=== PATIENT | male | born 1985 | race Caucasian/White ===

== ENCOUNTER 2018-09-18 08:22 | Emergency (ER) | payer MEDICAID ==
[~2018-09-18] VITALS: Ht 167.6 cm; Wt 113.4 kg
[~2018-09-18 08:22] MED LIST: ATOM40CA3 PO; ATOM60CA PO; CEPH500C PO; DIVA500T PO; HYDR-3714 PO; HYDR-757 PO; IBP600T1 PO; PHEN100C4 PO; PRM25T PO; RISP1TAB3 PO; RSP2T; STRAT40CAP PO; SULF-222 PO; SULF1TAB35 PO; SULF1TAB38 PO; TPR25T PO
--- NOTE | 2018-09-18 08:42 | NUR ---
PT GIVEN INFO FOR [facility]IC [facility]
--- NOTE | 2018-09-18 08:50 | ED EENT ---
History of Present Illness General Chief Complaint: Dental Problems/Pain Stated Complaint: DENTAL PAIN Nursing Triage Note: PT CO OF L LOWER TOOTH PAIN, AND L EAR PAIN. PT HAS DECAYED AND BROKEN TEETH. Source: patient Exam Limitations: no limitations History of Present Illness Date Seen by Provider: Sep 18, 2018 Time Seen by Provider: 08:45 Initial Comments This 33-year-old white male presents with dental caries. Patient has had significant long-standing dental caries. He has left mandibular dental caries began to hurt significantly and progressively in the last 48 hours. Patient has associated left ear pain. Patient denies associated headache stiff neck or photophobia. There has been no fever or chills. Patient's dental pain is severe, sharp, and radiates from the left mandible to the ear. Allergies and Home Medications Allergies Coded Allergies: No Known Drug Allergies (Unverified , 04/10/13) Home Medications No Active Prescriptions or Reported Meds Patient Home Medication List Home Medication List Reviewed: Yes Review of Systems Review of Systems Constitutional: No chills, No fever Ears: Pain (left ear) Nose: denies clots Mouth: see HPI, pain (and left mandible) Throat: denies no symptoms reported, denies neck stiffness Respiratory: No cough Cardiovascular: No chest pain Gastrointestinal: No abdominal pain, No nausea, No vomiting Musculoskeletal: No back pain Neurological: No Symptoms Reported Hematologic/Lymphatic: No Symptoms Reported Immunological/Allergic: no symptoms reported Past Zfftlng-Cudhnq-Vxaxeg Hx Past Med/Social Hx: Reviewed Nursing Past Med/Soc Hx Patient Social History Alcohol Use: Rarely Uses Recreational Drug Use: No Smoking Status: Current Someday Smoker Type Used: Cigarettes Recent Foreign Travel: No Contact w/Someone Who Travel: No Recent Infectious Disease Expo: No Recent Hopitalizations: No Physical Abuse: No Sexual Abuse: No Immunizations Up To Date Tetanus Booster (TDap): Less than 5yrs PED Vaccines UTD: No Past Medical History Surgeries: Yes Tonsillectomy Respiratory: No Cardiac: No Neurological: Yes Seizure Disorder Reproductive Disorders: No Sexually Transmitted Disease: No Gastrointestinal: No Musculoskeletal: No Endocrine: No Cancer: No Psychosocial: Yes ADD/ADHD, Anxiety, Bipolar, Depression Integumentary: Yes (ABSCESSES) Blood Disorders: No Adverse Reaction/Blood Tranf: No Family Medical History No Pertinent Family Hx Physical Exam Vital Signs Vital Signs - First Documented 09/18/18 08:30 Temp 98.1 Pulse 90 Resp 18 B/P (MAP) 162/107 (125) Pulse Ox 97 Height, Weight, BMI Height: 5'6.00" Weight: 250lbs. oz. 113.049981qj; BMI Method:Estimated General Appearance: WD/WN, mild distress Eyes: bilateral eye normal inspection Ears: left ear other (impacted wax) Nose: normal inspection Mouth/Throat: pharynx normal, dental tenderness (there is diffuse dental caries. The patient's second mandibular molar is very tender to palpation. There is no associated abscess.) Neck: non-tender, full range of motion, normal inspection Cardiovascular: regular rate, rhythm, no murmur Respiratory: lungs clear Gastrointestinal: non tender Neurologic/Psychiatric: no motor/sensory deficits, alert, normal mood/affect Skin: normal color, warm/dry; No rash Procedures/Interventions Suture Size: 5-0 Progress/Results/Core Measures Results/Orders Vital Signs/I&O 09/18/18 08:30 Temp 98.1 Pulse 90 Resp 18 B/P (MAP) 162/107 (125) Pulse Ox 97 Blood Pressure Mean: 125 Progress Progress Note : Time: 08:49 Progress Note I discussed the diffuse dental caries with patient. He is agreeable to penicillin and tramadol for the infection and pain respectively. I recommended following up with [facility] or our free dental care handout that will be available later this month on the . Patient was agreeable with this plan. Departure Impression Primary Impression: Dental caries Disposition: 01 HOME, SELF-CARE Condition: Unchanged Departure-Patient Inst. Decision time for Depature: 08:50 Referrals: NA MONTANO MD (PCP/Family) Primary Care Physician Patient Instructions: Dental Pain (DC) Add. Discharge Instructions: Penicillin and Ultram as prescribed. Close follow-up with your dental care of choice. Return if any problems or questions. All discharge instructions reviewed with patient and/or family. Voiced understanding. Scripts Penicillin V Potassium (Penicillin V Potassium) 500 Mg Tablet 500 MG PO QID for 10 Days, TAB Prov: ISAAC LUDWIG MD 09/18/18 Tramadol HCl (Ultram) 50 Mg Tablet 50 MG PO Q6H for Pain, #20 TAB Prov: ISAAC LUDWIG MD 09/18/18 ISAAC LUDWIG MD Sep 18, 2018 08:50
[2018-09-18] MEDS ORDERED: TRAM-42 PO (08:54)
[2018-09-18] MEDS ORDERED: PENI500T PO (08:54)
[2018-09-18 08:59] VITALS: BP 162/107
--- OUTSIDE RECORDS SUMMARY | 2018-09-18 13:41 | XMS REPORT ---
Author Author Migration, Doctor Organization [facility] Address Unknown Phone Unavailable Care Team Providers Care Laborer [employer] Name Role Phone Migration, Doctor Unavailable Unavailable PROBLEMS Type Condition ICD9-CM Code QMM85-IH Code Onset Dates Condition Status SNOMED Code Problem Unspecified epilepsy without mention of intractable epilepsy 345.90 Active [id number] ALLERGIES No Information ENCOUNTERS Encounter Location Date Diagnosis [facility] [address] [address] Sep, [facility] [address] [place] [address] Sep, [facility] [address] [address] Feb, [facility] [address] [address] Feb, [facility] [address] [address] Feb, [facility] [address] [address] Feb, [facility] [address] [address] Dec, [facility] [address] [address] Dec, [facility] [address] [address] Nov, [facility] [address] [address] Nov, [facility] [address] [address] May, IMMUNIZATIONS No Known Immunizations SOCIAL HISTORY Never Assessed REASON FOR VISIT [place] VITAL SIGNS MEDICATIONS Medication Instructions Dosage Frequency Start Date End Date Duration Status Depakote ER 500 mg 3 Tablet 1 time per day Nov, Active Klonopin 1 mg 1 time per day qHS Nov, Active Strattera 40 mg take 1 capsules by Oral route 2 times per day in the morning Nov, Active RESULTS No Results PROCEDURES No Known procedures INSTRUCTIONS MEDICATIONS ADMINISTERED No Known Medications
--- OUTSIDE RECORDS SUMMARY | 2018-09-18 13:41 | XMS REPORT | Continuity of Care Document ---
Author Organization Unknown Address Unknown Allergies Active Description Code Type Severity Reaction Onset Reported/Identified Relationship to Patient Clinical Status Yes No Known Drug Allergies [id number] Drug Allergy Unknown N/A 04/10/2013 Medications There is no data. Problems Date Dx Coded Attending Type Code Diagnosis Diagnosed By 04/10/2013 JOSHUA CACERES, MITZY Perdomo Ot 682.5 CELLULITIS OF BUTTOCK 04/10/2013 JOSHUA CACERES, MITZY Perdomo Ot 782.2 LOCAL SUPRFICIAL SWELLNG 04/12/2013 REAGAN TREVINO MD Ot 682.5 CELLULITIS OF BUTTOCK 04/12/2013 REAGAN TREVINO MD Ot V58.31 ENCOUNTER FOR CHANGE OR REMOVAL OF SURGI 06/26/2013 CAESAR CACERES, MULUGETA Howard Ot 608.4 MALE GEN INFLAM DIS NEC 06/26/2013 CAESAR CACERES, MULUGETA Howard Ot 608.86 EDEMA, MALE GENITAL ORGN 08/08/2013 ANTHONY GARCIA ELECTRICAL EXPERIMENTAL MECHANIC Ot 682.5 CELLULITIS OF BUTTOCK 11/22/2013 CLIFFORD RAMIREZ DO 345.90 EPILEPSY UNSPECIFIED WITHOUT INTRACTABLE EPILEPSY 12/20/2014 ANTHONY GARCIA ELECTRICAL EXPERIMENTAL MECHANIC Ot 825.20 FX FOOT BONE NOS-CLOSED 12/20/2014 ANTHONY GARCIA ELECTRICAL EXPERIMENTAL MECHANIC Ot 959.7 LOWER LEG INJURY NOS 12/20/2014 ANTHONY GARCIA ELECTRICAL EXPERIMENTAL MECHANIC Ot E000.8 OTHER EXTERNAL CAUSE STATUS 12/20/2014 ANTHONY GARCIA ELECTRICAL EXPERIMENTAL MECHANIC Ot E849.0 ACCIDENT IN HOME 12/20/2014 ANTHONY GARCIA ELECTRICAL EXPERIMENTAL MECHANIC Ot E888.9 FALL NOS 05/23/2015 KASSIE SIBLEY, TONI Ot E66.9 OBESITY, UNSPECIFIED 05/23/2015 FERNANDO DO, TONI Ot F31.9 BIPOLAR DISORDER, UNSPECIFIED 05/23/2015 FERNANDOJORGE A SIBLEY TONI Ot F90.9 ATTENTION-DEFICIT HYPERACTIVITY DISORDER 05/23/2015 KASSIE SIBLEY TONI Ot G40.909 EPILEPSY, UNSP, NOT INTRACTABLE, WITHOUT 05/23/2015 TONI FERNANDO DO Ot S00.83XA CONTUSION OF OTHER PART OF HEAD, INITIAL 05/23/2015 TONI FERNANDO DO Ot S01.511A LACERATION WITHOUT FOREIGN BODY OF LIP, 05/23/2015 TONI FERNANDO DO Ot S02.5XXA FRACTURE OF TOOTH (TRAUMATIC), INIT FOR 05/23/2015 TONI FERNANDO DO Ot S16.1XXA STRAIN OF MUSCLE, FASCIA AND TENDON AT N 05/23/2015 TONI FERNANDO DO Ot W19.XXXA UNSPECIFIED FALL, INITIAL ENCOUNTER 05/23/2015 TONI FERNANDO DO Ot Z23 ENCOUNTER FOR IMMUNIZATION 05/23/2015 TONI FERNANDO DO Ot Z68.42 BODY MASS INDEX (BMI) 45.0-49.9, ADULT 05/23/2015 TONI FERNANDO DO Ot Z91.14 PATIENT'S OTHER NONCOMPLIANCE WITH MEDIC 09/18/2018 DOROTA QUEVEDO Ot V58.69 OTH MED,LT,CURRENT USE 09/18/2018 DOROTA QUEVEDO Ot V58.83 ENCOUNTER FOR THERAPEUTIC DRUG MONITORIN Procedures There is no data. Results There is no data. Encounters ACCT No. Visit Date/Time Discharge Status Pt. Type Provider Facility Loc./Unit Complaint [id number] 11/22/2013 10:49:00 11/22/2013 23:59:59 CLS Outpatient JAMES SIBLEY CLIFFORD [facility] 12/20/2014 15:29:07 ACT Document Registration [id number] 09/18/2018 08:23:00 09/18/2018 08:59:00 DIS Emergency ISAAC LUDWIG MD [facility] ER DENTAL PAIN [id number] 05/22/2015 17:21:00 05/23/2015 10:30:00 DIS Inpatient TONI FERNANDO DO [facility] ICU S/P FALL VS SYNCOPE VS SEIZURE, FACIAL CONTUSIONS [id number] 12/20/2014 15:28:00 12/20/2014 18:15:00 DIS Emergency ANTHONY GARCIA APRN [facility] ER R FOOT PAIN/INJ [id number] 08/08/2013 17:26:00 08/08/2013 17:59:00 DIS Emergency ANTHONY GARCIA APRN [facility] ER BOIL [id number] 06/26/2013 22:44:00 06/26/2013 23:37:00 DIS Emergency CAESAR CACERES, MULUGETA Howard [facility] ER SALGUERO [id number] 05/20/2013 10:10:00 05/20/2013 23:59:59 CLS Outpatient DOROTA QUEVEDO [facility] LAB MEDICATION MONITOR [id number] 04/12/2013 06:19:00 04/12/2013 06:54:00 DIS Emergency URIEL CACERES, REAGAN Cano [facility] ER GET PACKING REMOVED FROM PRIOR DRAINING [id number] 04/10/2013 07:08:00 04/10/2013 08:08:00 DIS Emergency JOSHUA CACERES, MITZY Perdomo [facility] ER POSS ABSCESS [id number] 01/14/2013 23:21:00 01/15/2013 00:15:00 DIS Emergency
== END 2018-09-18 08:59 | disposition home or self-care (01) ==
LOC: EDUNIT# 08:22 → ER 08:23
DX: K02.9 Dental caries, unspecified (principal); G40.909 Epilepsy, unspecified, not intractable, without status epilepticus; F90.9 Attention-deficit hyperactivity disorder, unspecified type; F98.8 Other specified behavioral and emotional disorders with onset usually occurring in childhood and adolescence; F41.9 Anxiety disorder, unspecified; F31.9 Bipolar disorder, unspecified; F17.210 Nicotine dependence, cigarettes, uncomplicated; Z90.89 Acquired absence of other organs
CPT/HCPCS: 99282

== ENCOUNTER 2019-09-10 01:20 | Emergency (ER) | payer MEDICAID ==
[~2019-09-10] VITALS: Ht 165 cm; Wt 117.3 kg
[~2019-09-10 01:20] MED LIST changes: +PENI500T PO; +TRAM-42 PO
[2019-09-10] MEDS ORDERED: LIDOCAINE 2% VISCOUS 15 ML UDC ONE (01:25)
[2019-09-10] MEDS ORDERED: AMOX500C2 PO (01:43)
--- NOTE | 2019-09-10 01:43 | ED EENT ---
History of Present Illness General Stated Complaint: DENTAL PAIN Source: patient Exam Limitations: no limitations History of Present Illness Date Seen by Provider: Sep 10, 2019 Time Seen by Provider: 01:25 Initial Comments Patient presents ER by private conveyance from home with chief complaint that for the past several years she's had dental pain in his right lower jaw but his posterior molar in the past 2 months has been progressively getting worse. He has not elevated and with a dentist because of the recent chart Downs. He has not been on antibiotics for several months. He recently did have a tooth pull on his left lower jaw but now his right is hurting. He has been using Tylenol, ibuprofen. No fever, cough, chills, body aches, malaise, nausea or difficulty swallowing fluids. Allergies and Home Medications Allergies Coded Allergies: No Known Drug Allergies (Unverified , 04/10/13) Home Medications Penicillin V Potassium 500 Mg Tablet, 500 MG PO QID Prescribed by: ISAAC LUDWIG MD on 09/18/18 0854 Tramadol HCl 50 Mg Tablet, 50 MG PO Q6H Prescribed by: ISAAC LUDWIG MD on 09/18/18 0854 Patient Home Medication List Home Medication List Reviewed: Yes Review of Systems Review of Systems Constitutional: No chills, No diaphoresis Eyes: Denies Blindness, Denies Blurred Vision Ears: Denies Dizziness, Denies Pain Nose: denies clots, denies congestion Mouth: see HPI; denies clots; pain; denies swelling, denies bloody discharge, denies purulent discharge Throat: denies pain, denies swelling Respiratory: No cough, No short of breath All Other Systems Reviewed Negative Unless Noted: Yes Past Saeciob-Zeqifl-Pmxpqh Hx Patient Social History Alcohol Use: Denies Use Recreational Drug Use: No Smoking Status: Current Everyday Smoker Type Used: Cigarettes Recent Foreign Travel: No Contact w/Someone Who Travel: No Recent Hopitalizations: No Immunizations Up To Date Tetanus Booster (TDap): Less than 5yrs PED Vaccines UTD: No Past Medical History Surgeries: Yes Tonsillectomy Respiratory: No Cardiac: No Neurological: Yes Seizure Disorder Reproductive Disorders: No Sexually Transmitted Disease: No Gastrointestinal: No Musculoskeletal: No Endocrine: No Cancer: No Psychosocial: Yes ADD/ADHD, Anxiety, Bipolar, Depression Integumentary: Yes (ABSCESSES) Blood Disorders: No Adverse Reaction/Blood Tranf: No Family Medical History No Pertinent Family Hx Physical Exam Height, Weight, BMI Height: 5'6.00" Weight: 250lbs. oz. 113.376614zk; BMI Method:Estimated General Appearance: WD/WN, no apparent distress Eyes: bilateral eye normal inspection, bilateral eye PERRL, bilateral eye EOMI Ears: bilateral ear auricle normal, bilateral ear canal normal, bilateral ear TM normal Nose: normal inspection; No discharge, No sinus tenderness Mouth/Throat: other (extensive dental caries without pointing or obvious, drainable abscess. Tenderness along the right mandible) Neck: non-tender, full range of motion, supple, normal inspection Cardiovascular: normal peripheral pulses, regular rate, rhythm Respiratory: no respiratory distress, no accessory muscle use Neurologic/Psychiatric: alert, oriented x 3 Skin: normal color, warm/dry Procedures/Interventions Suture Size: 5-0 Progress/Results/Core Measures Results/Orders My Orders Orders - MAXIMO CUELLAR Lidocaine 2% Viscous 15 Ml (Xylocaine Vi (09/10/19 01:25) Lidocaine 2% Viscous 15 Ml (Xylocaine Vi (09/10/19 01:45) Progress Progress Note : Time: 01:41 Progress Note Amoxicillin, viscous lidocaine and encourage him to call and follow-up with a dentist in the next 1-2 weeks. Departure Impression Primary Impression: Pain due to dental caries Disposition: HOME, SELF-CARE Condition: Stable Departure-Patient Inst. Decision time for Depature: 01:42 Referrals: NO,LOCAL PHYSICIAN (PCP/Family) Primary Care Physician Patient Instructions: Dental Pain (DC) Add. Discharge Instructions: Warm compresses over the jaw as often as necessary for pain. Tylenol 1000 mg every 8 hours as needed for pain. Ibuprofen 800 mg every 8 hours as needed for pain. Get some gauze and the viscous lidocaine applied directly over the tooth and hold it in place for one to 2 hours as necessary for pain. You may also use topical gel such as Orajel in a similar fashion. Start taking amoxicillin one capsule 3 times a day for the next week. If you have severe fevers, difficulty breathing or swallowing fluids then you should return to the ER otherwise plan to follow up in 1-2 weeks with a dentist. Scripts Amoxicillin (Amoxicillin) 500 Mg Capsule 500 MG PO TID for 7 Days, #21 CAP 0 Refills Prov: MAXIMO CUELLAR 09/10/19 MAXIMO CUELLAR Sep 10, 2019 01:43
[2019-09-10] MEDS ORDERED: LIDOCAINE 2% VISCOUS 15 ML UDC PO ONE (01:45)
[2019-09-10 01:48] VITALS: BP 129/85
== END 2019-09-10 01:50 | disposition home or self-care (01) ==
LOC: EDUNIT# 01:20 → ER 01:26
DX: K02.9 Dental caries, unspecified (principal); F90.9 Attention-deficit hyperactivity disorder, unspecified type; F41.9 Anxiety disorder, unspecified; F31.9 Bipolar disorder, unspecified; F17.210 Nicotine dependence, cigarettes, uncomplicated
CPT/HCPCS: 99282

== ENCOUNTER 2021-03-22 14:15 | Emergency (ER) | payer MEDICAID ==
[~2021-03-22] VITALS: Ht 165 cm; Wt 118.0 kg
[~2021-03-22 14:15] MED LIST changes: +AMOX500C2 PO; -RISP1TAB3 PO; +RISP1TAB93 PO; -SULF1TAB35 PO
--- NOTE | 2021-03-22 15:19 | Diagnostic Imaging Report ---
EXAMINATION: Left knee radiographs, 3 views. COMPARISON: December 29, 2008. HISTORY: 35-year-old male, left knee pain. FINDINGS: There is a probable meniscal ossicle. There is no identified acute fracture. There is no knee joint effusion. The joint spaces are well preserved. IMPRESSION: 1. No acute bony abnormality of the left knee. Dictated by: Dictated on workstation # [id number]
--- NOTE | 2021-03-22 15:34 | ED Fall/Injury ---
General Chief Complaint: Lower Extremity Stated Complaint: L KNEE PAIN Nursing Triage Note: Pt ambulatory to ED by POV with c/o L knee pain. Pt reports he slipped and fell on his porch ramp this morning and injured his L knee. Pt rates pain 7/10 and describes it as sharp/throbbing. Pt has not tried anything to help with the pain, but is using a cane that he borrowed to help him walk. Source: patient Exam Limitations: no limitations History of Present Illness Date Seen by Provider: Mar 22, 2021 Time Seen by Provider: 14:50 Initial Comments This 35-year-old young man presents to the emergency room with complaints of pain in the left knee and difficulty with ambulation after slipping on his wet decking and falling. He reports a twisting of the left knee and also striking his knee. The area of maximum pain is in the left anterior medial joint space. There is no obvious injury on visual inspection. He denies any other injury. The fall was purely mechanical from slipping on a wet surface. There was no physiologic prodrome. Allergies and Home Medications Allergies Coded Allergies: No Known Drug Allergies (Unverified , 04/10/13) Patient Home Medication List Home Medication List Reviewed: Yes Amoxicillin (Amoxicillin) 500 Mg Capsule, 500 MG PO TID Prescribed by: MAXIMO CUELLAR on 09/10/19 0143 Hydrocodone/Acetaminophen (Hydrocodone-Acetamin 5-325 mg) 1 Each Tablet, 1 TAB PO Q6H PRN for PAIN-MODERATE (5-7) Prescribed by: TO MONTILE on 03/22/21 1553 Penicillin V Potassium (Penicillin V Potassium) 500 Mg Tablet, 500 MG PO QID Prescribed by: ISAAC LUDWIG MD on 09/18/18 5417 Tramadol HCl (Ultram) 50 Mg Tablet, 50 MG PO Q6H Prescribed by: ISAAC LUDWIG MD on 09/18/18 0824 Review of Systems Review of Systems Constitutional: no symptoms reported Eyes: No Symptoms Reported Ears, Nose, Mouth, Throat: no symptoms reported Respiratory: no symptoms reported Cardiovascular: no symptoms reported Gastrointestinal: no symptoms reported Genitourinary: no symptoms reported Musculoskeletal: see HPI Skin: no symptoms reported Psychiatric/Neurological: No Symptoms Reported Past Jtmmyac-Cafjds-Snmtdp Hx Patient Social History Tobacco Use?: No Use of E-Cig and/or Vaping dev: No Substance use?: No Alcohol Use?: No Immunizations Up To Date Tetanus Booster (TDap): Less than 5yrs PED Vaccines UTD: No Influenza Vaccine Up-to-Date: No; Not Current First/Initial COVID19 Vaccinat: October 2020 Second COVID19 Vaccination Floyd: November Past Medical History Surgeries: Yes Tonsillectomy Respiratory: No Cardiac: No Neurological: Yes Seizure Disorder Reproductive Disorders: No Sexually Transmitted Disease: No Gastrointestinal: No Musculoskeletal: No Endocrine: No Cancer: No Psychosocial: Yes ADD/ADHD, Anxiety, Bipolar, Depression Integumentary: Yes (ABSCESSES) Blood Disorders: No Adverse Reaction/Blood Tranf: No Family Medical History No Pertinent Family Hx Physical Exam Vital Signs Vital Signs - First Documented 03/22/21 14:22 Temp 37.1 Pulse 94 Resp 18 B/P (MAP) 115/80 (92) Pulse Ox 98 O2 Delivery Room Air Capillary Refill : Less Than 3 Seconds Height, Weight, BMI Height: 5'6.00" Weight: 250lbs. oz. 113.213013oi; 43.00 BMI Method:Estimated General Appearance: WD/WN, mild distress HEENT: normal ENT inspection Cardiovascular: regular rate, rhythm, no murmur Respiratory: lungs clear, normal breath sounds, no respiratory distress Extremities: other (There is tenderness along the left medial joint line. There is pain with flexion of the knee or any axial loading. Patient did not tolerate drawer tests secondary to pain. There is no obvious laxity. There is no edema or inflammatory change. Patella was nontender and unremarkable. No posterior pain or tenderness. 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, no motor/sensory deficits, alert, normal mood/affect, oriented x 3 Skin: normal color, warm/dry Liz Coma Score Best Eye Response: (4) Open Spontaneously Best Verbal Response: (5) Oriented Best Motor Response: (6) Obeys Commands [place] Total: 15 Procedures/Interventions Suture Size: 5-0 Progress/Results/Core Measures Results/Orders My Orders Orders - TO MARTINEZ MD Knee, Left, 3 Views (03/22/21 14:50) Hydrocodone/Apap 5/325 Tablet (Lortab 5 (03/22/21 15:45) Crutches (03/22/21 15:41) Knee Immobilizer (03/22/21 15:41) Medications Given in ED Current Medications Medications Dose Ordered Sig/Kalyani Route Start Time Stop Time Status Last Admin Dose Admin Acetaminophen/ Hydrocodone Bitart 1 ea ONCE ONCE PO 03/22/21 15:45 03/22/21 15:46 DC 03/22/21 16:01 1 EA Vital Signs/I&O 03/22/21 03/22/21 14:22 16:03 Temp 37.1 Pulse 94 92 Resp 18 18 B/P (MAP) 115/80 (92) 120/82 Pulse Ox 98 98 O2 Delivery Room Air Room Air Blood Pressure Mean: 92 Progress Progress Note : Progress Note No bony injuries were identified on x-ray. Patient was fitted with a knee immobilizer and a prescription was provided for crutches. He was given hydrocodone for pain. I advised he would likely need further evaluation in the clinic if he did not improve over the weekend. He may need therapy, MRI, etc. after consultation with his primary care provider. Diagnostic Imaging Diagonstic Imaging: Xray Plain Films/CT/US/NM/MRI: knee Comments Left knee x-ray viewed by me and report reviewed. See report below: NAME: SÁNCHEZ MAR MED REC#: [id number] PT STATUS: REG ER : 1985 PHYSICIAN: TO MARTINEZ MD ADMIT DATE: 03/22/21/ER Draft Date of Exam:03/22/21 KNEE, LEFT, 3 VIEWS EXAMINATION: Left knee radiographs, 3 views. COMPARISON: December 29, 2008. HISTORY: 35-year-old male, left knee pain. FINDINGS: There is a probable meniscal ossicle. There is no identified acute fracture. There is no knee joint effusion. The joint spaces are well preserved. IMPRESSION: 1. No acute bony abnormality of the left knee. Dictated on workstation # [id number] Dict: 03/22/21 1514 Trans: 03/22/21 1519 [facility] [id number] Interpreted by: YOVANY MCCLURE MD Departure Impression Primary Impression: Fall on same level from slipping Qualified Codes: W01.0XXA - Fall on same level from slipping, tripping and stumbling without subsequent striking against object, initial encounter Additional Impression: Left knee injury Qualified Codes: S89.92XA - Unspecified injury of left lower leg, initial encounter Disposition: 01 HOME, SELF-CARE Condition: Stable Departure-Patient Inst. Decision time for Depature: 15:37 Referrals: NO,LOCAL PHYSICIAN (PCP) Primary Care Physician EUGENIA HENSLEY MD, TERRY D MD ZAFUTA,MADISON Perez MD Patient Instructions: Knee Sprain ED Add. Discharge Instructions: The x-rays of your left knee were read as normal. You may have a soft tissue injury such as a meniscus tear causing your symptoms. Use the knee immobilizer for stability as needed. Use the crutches when needed if bearing weight causes pain. For pain you may use ibuprofen up to 600 mg every 6 hours as needed. Add hydrocodone for pain not controlled by ibuprofen. Elevation, compressive wrapping with an Pilo bandage, and icing in 20-minute intervals should also help with pain and swelling. Follow-up with your primary care provider and/or an orthopedic provider soon as possible. You may need a referral from your primary care provider to see the orthopedic provider. A list of local orthopedic providers is below. Call with questions or concerns. Return to the ER if you have worsening symptoms. All discharge instructions reviewed with patient and/or family. Voiced understanding. Scripts Hydrocodone/Acetaminophen (Hydrocodone-Acetamin 5-325 mg) 1 Each Tablet 1 TAB PO Q6H PRN for PAIN-MODERATE (5-7), #10 TAB Prov: TO MARTINEZ MD 03/22/21 Copy Copies To 1: CLIFFORD RAMIREZ JOSHUA T MD Mar 22, 2021 15:34
[2021-03-22] MEDS ORDERED: HYDROcodone/APAP 5 MG/325 MG (LORTAB) TAB PO ONE (15:45)
[2021-03-22] MEDS ORDERED: ACHD5005 PO (15:52)
[2021-03-22 16:03] VITALS: BP 120/82
== END 2021-03-22 16:04 | disposition home or self-care (01) ==
LOC: EDUNIT# 14:15 → ER 14:17
DX: S89.92XA Unspecified injury of left lower leg, initial encounter (principal); W01.198A Fall on same level from slipping, tripping and stumbling with subsequent striking against other object, initial encounter
CPT/HCPCS: 73562